=== PATIENT | male | born 1945 | race Caucasian/White ===

== ENCOUNTER 2018-02-21 18:38 | Emergency (ER) | payer MEDICARE ==
[~2018-02-21] VITALS: Ht 170.2 cm; Wt 80.0 kg
[~2018-02-21 18:38] MED LIST: AMOX-580 PO; CEPH500C5 PO; DOCU-28 PO; FLO0.4C PO; GLUC-133 PO; ONDA4TAB6 PO; SENN25TA27 PO
[2018-02-21 18:41] VITALS: BP 138/66
[2018-02-21] MEDS ORDERED: DOXYCYCLINE 100MG CAPSULE PO STA (20:09)
[2018-02-21] MEDS ORDERED: LIDOcaine 1.5% w/epinephrine 1:200,000 5ml ampul IJ ONE (20:10)
[2018-02-21] MEDS ORDERED: cephalexin 250mg capsule PO ONE (20:10)
[2018-02-21] MEDS ORDERED: ondansetron 4mg rapidly disintigrating tab PO ONE (20:10)
[2018-02-21] MEDS ORDERED: LIDOcaine 1% w/epiNEPHrine 1:200,000 30ml vial IJ ONE (20:20)
[2018-02-21] MEDS ORDERED: CEPH-572 PO (20:46)
[2018-02-21] MEDS ORDERED: DOXY100C43 PO (20:46)
== END 2018-02-21 20:57 | disposition home or self-care (01) ==
LOC: ER 18:39
DX: L02.416 Cutaneous abscess of left lower limb (principal); L50.8 Other urticaria; R21 Rash and other nonspecific skin eruption; I10 Essential (primary) hypertension; Z86.14 Personal history of Methicillin resistant Staphylococcus aureus infection
CPT/HCPCS: 10060; 99284; J3490

== ENCOUNTER 2018-04-05 07:52 | Emergency (ER) | payer MEDICARE ==
[~2018-04-05] VITALS: Ht 170.2 cm; Wt 80.0 kg
[2018-04-05 07:57] VITALS: BP 144/83
[2018-04-05] MEDS ORDERED: DOXYCYCLINE 100MG CAPSULE PO STA (08:17)
[2018-04-05] MEDS ORDERED: DOXY100C43 PO (08:18)
[2018-04-05] MEDS ORDERED: cephalexin 250mg capsule PO ONE (08:20)
== END 2018-04-05 08:33 | disposition home or self-care (01) ==
LOC: ER 07:54
DX: L03.113 Cellulitis of right upper limb (principal); I10 Essential (primary) hypertension; Z79.899 Other long term (current) drug therapy; Z86.14 Personal history of Methicillin resistant Staphylococcus aureus infection
CPT/HCPCS: 99283

== ENCOUNTER 2019-10-21 17:49 | Emergency (ER) | payer MEDICARE ==
[~2019-10-21] VITALS: Ht 170.2 cm; Wt 80.9 kg
[~2019-10-21 17:49] MED LIST changes: -CEPH500C5 PO; +DOXY100C43 PO
[2019-10-21 17:55] VITALS: BP 129/74
--- NOTE | 2019-10-21 18:16 | NUR ---
Pt seen, assessed, and evalauted by proivder in triage. Verbally educated on discharge instruction by PA to which he verbalized understanding. Discharged without receiving written paperwork and prior to nursing assessment or intervention.
== END 2019-10-21 18:20 | disposition home or self-care (01) ==
LOC: ER 17:50
DX: I95.89 Other hypotension (principal); R53.1 Weakness; R42 Dizziness and giddiness; I10 Essential (primary) hypertension; Z86.14 Personal history of Methicillin resistant Staphylococcus aureus infection; F41.9 Anxiety disorder, unspecified; Z72.89 Other problems related to lifestyle; Z79.2 Long term (current) use of antibiotics; Z79.899 Other long term (current) drug therapy
CPT/HCPCS: 99281

== ENCOUNTER 2019-11-17 18:55 | Emergency (ER) | payer MEDICARE ==
[~2019-11-17] VITALS: Ht 167.6 cm; Wt 80.3 kg
[2019-11-17 18:58] VITALS: BP 154/90
[2019-11-17] MEDS ORDERED: OFLO5DRO5 LEFT EAR (20:08)
== END 2019-11-17 20:34 | disposition home or self-care (01) ==
LOC: ER 18:56
DX: H60.92 Unspecified otitis externa, left ear (principal); I10 Essential (primary) hypertension; F41.9 Anxiety disorder, unspecified; Z86.14 Personal history of Methicillin resistant Staphylococcus aureus infection; Z72.89 Other problems related to lifestyle; Z79.2 Long term (current) use of antibiotics; Z79.899 Other long term (current) drug therapy
CPT/HCPCS: 99283

== ENCOUNTER 2019-12-20 09:10 | Emergency (ER) | payer MEDICARE ==
[~2019-12-20] VITALS: Ht 170.2 cm; Wt 81.8 kg
[~2019-12-20 09:10] MED LIST changes: +ACET-2119 PO; -AMOX-580 PO; +CHOL100062 PO; -DOCU-28 PO; -DOXY100C43 PO; -FLO0.4C PO; +HYDR12.55 PO; +IBUP-1986 PO; -ONDA4TAB6 PO; -SENN25TA27 PO; +TRAM100T40 PO; +TUMERIC PO; +VALS320T17 PO
[2019-12-20 09:25] VITALS: BP 107/74
== END 2019-12-20 10:31 | disposition home or self-care (01) ==
LOC: ER 09:11
DX: R58 Hemorrhage, not elsewhere classified (principal); F41.9 Anxiety disorder, unspecified; I10 Essential (primary) hypertension; Z88.2 Allergy status to sulfonamides; Z88.8 Allergy status to other drugs, medicaments and biological substances; Z79.899 Other long term (current) drug therapy; Z79.1 Long term (current) use of non-steroidal anti-inflammatories (NSAID)
CPT/HCPCS: 99281

== ENCOUNTER 2020-03-06 09:33 | Emergency (ER) | payer MEDICARE ==
[~2020-03-06] VITALS: Ht 170.2 cm; Wt 81.8 kg
[2020-03-06 09:36] VITALS: BP 129/84
== END 2020-03-06 10:04 | disposition home or self-care (01) ==
LOC: ER 09:33
DX: Z13.89 Encounter for screening for other disorder (principal); I10 Essential (primary) hypertension; Z86.14 Personal history of Methicillin resistant Staphylococcus aureus infection; Z72.89 Other problems related to lifestyle; Z88.2 Allergy status to sulfonamides; Z88.8 Allergy status to other drugs, medicaments and biological substances; Z79.899 Other long term (current) drug therapy; Z98.890 Other specified postprocedural states
CPT/HCPCS: 99281

== ENCOUNTER 2021-09-08 18:39 | Emergency (ER) | payer MEDICARE ==
[~2021-09-08 18:39] MED LIST changes: +ALLO100T PO; +ASPI-845 PO; -GLUC-133 PO; -TRAM100T40 PO; -TUMERIC PO
== END 2021-09-08 20:00 | disposition left against medical advice (07) ==
LOC: ER 18:39
DX: Z48.00 Encounter for change or removal of nonsurgical wound dressing (principal); Z53.21 Procedure and treatment not carried out due to patient leaving prior to being seen by health care provider